=== PATIENT | female | born 1990 ===

== ENCOUNTER 2017-12-25 07:45 | Day surgery (SDC) | payer MEDICAID, OTHER ==
[~2017-12-25 07:45] MED LIST: Dextrose 5%/0.45% NS 1,000 ML IV SCH; Morphine 10 mg/5 ml Oral Soln PO PRN
[2017-12-25] MEDS ORDERED: ceFAZolin IV 1 gm in Dextrose 1 GM/50 ML BAG IVPB ONE ×2 (09:27→09:29)
[2017-12-25] MEDS ORDERED: Propofol 10 mg/ml Inj (20 ML) ONE (09:32)
[2017-12-25] MEDS ORDERED: Midazolam 2 MG/2 ML VIAL ONE (09:33)
[2017-12-25] MEDS ORDERED: Neostigmine Methylsulfate 3mg/3ml Syringe IV ONE (09:56)
[2017-12-25] MEDS ORDERED: Succinylcholine Chloride 20 mg/ml Syr (5 ml) IV ONE (09:56)
[2017-12-25] MEDS ORDERED: HYDROmorphone 0.5 mg/0.5 ml ISec IVP PRN (10:02)
[2017-12-25] MEDS ORDERED: HYDROmorphone 0.5 mg/0.5 ml ISec ONE (10:14)
[2017-12-25 11:47] VITALS: BP 104/59; PULSE 71; RESP 18; TEMP 98; O2SAT 98
--- NOTE | 2017-12-25 20:53 | OP ---
PROCEDURE DATE: 12/25/2017 PREOPERATIVE DIAGNOSIS: Chronic tonsillitis. POSTOPERATIVE DIAGNOSIS: Chronic tonsillitis. PROCEDURE: Tonsillectomy. SIGNIFICANT FINDINGS: Chronically infected tonsils. PROCEDURE: The patient was brought into room, placed in the supine position, anesthesia was initiated through an ET tube. The patient was draped in the usual manner. 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 Right tonsil was grabbed, pulled medially. Incision was made in the anterior tonsillar pillar using coblation, dissection was done between tonsil and tonsillar fossa using coblation until the tonsil was removed. Bleeding was controlled using coblation. Next, the other tonsil was grabbed, pulled medially. Incision was made in the anterior tonsillar pillar using coblation ,dissection was done between tonsil and tonsillar fossa using coblation until the tonsil removed. Bleeding was controlled using coblation. Both tonsillar beds were rubbed vigorously with coblation wand. No bleeding was noted. Mouth gag was let down for 30 seconds, put back up, no bleeding was noted. Mouth gag was then taken down and removed. The patient was taken off anesthesia and taken to recovery room in stable manner. Rene Washburn MD
== END 2017-12-25 12:19 | disposition home or self-care (01) ==
LOC: C.SDS 07:45
PROVIDERS: ATTEND Otolaryngology
DX: J35.01 Chronic tonsillitis (principal)
CPT/HCPCS: 42826; 88304; J0690; J1170; J2001; J2250; J2405; J2704; J2710; J2765; J3010